=== PATIENT | male | born 1970 | race Caucasian/White ===

== ENCOUNTER → 2016-08-07 | Outpatient (CLI) | payer BC ==
[~2016-08-07] MED LIST: ASPIRIN 81M81 MG/TA2 PO; CALCIUM600 M1 PO; CLARITIN 1010 MG/TAB PO; COGENTIN0.5 MG PO; COZAAR25 MG PO; HUMALOG100 U/ML SC; LANTUS100 U/ML; LANTUS100 U/ML SC; RISPERDAL M-TA0.5 MG PO; SPORANOX; SYNTHROID0.088 MG PO; TRESIBA FL100 UNIT/1 SQ; TRILAFON 2MG TAB2 MG PO; VITAMIN D1000 IU PO; ZOCOR 20MG20 MG PO
== END ==
LOC: BHSO 14:55
DX: F20.89 Other schizophrenia (principal)

== ENCOUNTER → 2016-09-05 | Outpatient (CLI) | payer BC | LOC: BHSO 14:55 | DX: F20.9 Schizophrenia, unspecified (principal) ==

== ENCOUNTER → 2016-10-31 | Outpatient (CLI) | payer BC | LOC: BHSO 15:22 | DX: F25.1 Schizoaffective disorder, depressive type (principal) ==

== ENCOUNTER → 2017-01-31 | Outpatient (CLI) | payer BC | LOC: BHSO 15:14 | DX: F25.0 Schizoaffective disorder, bipolar type (principal) ==

== ENCOUNTER → 2017-03-28 | Outpatient (CLI) | payer BC | LOC: BHSO 09:35 | DX: F25.0 Schizoaffective disorder, bipolar type (principal) ==